=== PATIENT | female | born 1995 | race Caucasian/White ===

== ENCOUNTER 2016-09-27 13:31 | Emergency (ER) | payer OTHER ==
[~2016-09-27] VITALS: Ht 162.6 cm; Wt 83.1 kg
--- NOTE | 2016-09-27 13:57 | NUR ---
pt on control polo
[2016-09-27] MEDS ORDERED: PROMETHAZINE 25 MG/ML (PHENERGAN) 1 ML VIAL IM ONE (14:10)
[2016-09-27] MEDS ORDERED: HYDROmorphone 2 MG/ML (DILAUDID) 1 ML SYRINGE IM ONE (14:10)
--- NOTE | 2016-09-27 14:21 | NUR ---
pt has her head under a pillow, refuses to lay on back or allow for a complete assessment
[2016-09-27 15:54] VITALS: BP 118/58
== END 2016-09-27 15:40 | disposition home or self-care (01) ==
LOC: EDUNIT# 13:31 → EDBD 13:32 → ED 13:32
DX: G43.409 Hemiplegic migraine, not intractable, without status migrainosus (principal)
CPT/HCPCS: 70450; 96372; 99283; J1170; J2550

== ENCOUNTER → 2016-09-27 | Outpatient (CLI) | payer OTHER ==
[2016-09-27 13:31] VITALS: BP 122/78
== END ==
LOC: EDBD → MHUC 13:15
PROVIDERS: ATTEND Physician Assistant
DX: R51 Headache (principal); R20.0 Anesthesia of skin

== ENCOUNTER 2016-12-14 20:55 | Emergency (ER) | payer OTHER ==
[~2016-12-14] VITALS: Ht 162.6 cm; Wt 88.6 kg
[~2016-12-14 20:55] MED LIST: AC325T PO; ACET325T38 PO; BUPR150T6 PO; DOCO200C4 PO; DOXY100T41 PO; HYDR-3702 PO; IBP200T PO; IBP800T PO; METR500T17 PO; ONDA4TAB8 PO; OXYC1TAB87 PO; PNV#1COM6 PO; SUMA100T3 PO
--- OUTSIDE RECORDS SUMMARY | 2016-12-14 21:01 | XMS REPORT | Continuity of Care Document ---
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 Hospital Discharge Instructions No hospital discharge instructions. Plan of Care No plan of care. Functional Status No functional status results. Allergies, Adverse Reactions, Alerts Allergen Type Severity Reaction Status Last Updated No Known Drug Allergies Active 04/09/13 Immunizations No immunization records. Vital Signs Acute Vital Signs Vital Response Date/Time Temperature (Fahrenheit) 97.9 Pulse 83 bpm Respirations 20 Height 5 ft 4 in Weight 169 lb Body Mass Index 29.0 kg/m^2 Results Test Source Date Result Interp. Ref. Range Comments Anion Gap December 08, 2013 10:55am 9.0 MEQ/L N 3-15 Collected by nurse? N BUN/Creatinine Ratio December 08, 2013 10:55am 18 N 10-20 Collected by nurse ? N Basophils # (Auto) December 08, 2013 10:55am 0.0 10^3uL Collected by nurse? N Basophils (%) (Auto) December 08, 2013 10:55am 0 % N 0-2 Collected by nurse ? N Blood Urea Nitrogen December 08, 2013 10:55am 14 MG/DL N 7-18 Collected by nurse? N C-Reactive Protein December 08, 2013 10:55am < 0.50 MG/DL 0.0-0.9 Collected by nurse? N Calcium Level December 08, 2013 10:55am 9.6 MG/DL N 8.8-10.8 Collected by nurse? N Carbon Dioxide Level December 08, 2013 10:55am 30 MMOL/L H 22-29 Collected by nurse? N Chloride Level December 08, 2013 10:55am 104 mmol/L N 98-108 Collected by nurse? N Creatinine December 08, 2013 10:55am 0.80 mg/dL N 0.6-1.2 Collected by nurse ? N Eosinophils # (Auto) December 08, 2013 10:55am 0.1 10^3uL Collected by nurse? N Eosinophils (%) (Auto) December 08, 2013 10:55am 2 % N 0-4 Collected by nurse? N Erythrocyte Sedimentation Rate December 08, 2013 10:55am 10 mm/hr N 0-18 Collected by nurse? N Estimat Glomerular Filtration Rate December 08, 2013 10:55am 111.8 Collected by nurse? N Estimated GFR (Non- December 08, 2013 10:55am 92.4 Collected by nurse? N Membranes Rupture (PAMG-1) December 23, 2014 5:28am Negative Negative Collected by nurse? YHas specimen been collected/obtained? Y Glucose Level December 08, 2013 10:55am 94 mg/dL N 70-110 Collected by nurse ? N Hematocrit December 08, 2013 10:55am 39.50 % N 35.00-45.00 Collected by nurse? N Hemoglobin December 08, 2013 10:55am 13.9 g/dL N 12.0-15.5 Collected by nurse? N Lymphocytes # (Auto) December 08, 2013 10:55am 2.3 X10^3 Collected by nurse? N Lymphocytes (%) (Auto) December 08, 2013 10:55am 34 % N 20-46 Collected by nurse? N Mean Corpuscular Hemoglobin December 08, 2013 10:55am 29.8 PG N 26.0-34.0 Collected by nurse? N Mean Corpuscular Hemoglobin Concent December 08, 2013 10:55am 35.2 g/dL N 31.0-37.0 Collected by nurse? N Mean Corpuscular Volume December 08, 2013 10:55am 85 FL N 80-100 Collected by nurse? N Mean Platelet Volume December 08, 2013 10:55am 10.2 FL H 6.0-9.5 Collected by nurse? N Monocytes # (Auto) December 08, 2013 10:55am 0.6 X10^3 Collected by nurse? N Monocytes (%) (Auto) December 08, 2013 10:55am 9 % N 3-11 Collected by nurse ? N Monoscreen February 23, 2012 10:23am Negative Negative Neutrophils # (Auto) December 08, 2013 10:55am 3.7 X10^3 Collected by nurse? N Neutrophils (%) (Auto) December 08, 2013 10:55am 55 % N 51-67 Collected by nurse? N Platelet Count December 08, 2013 10:55am 275 10^3uL N 150-450 Collected by nurse? N Potassium Level December 08, 2013 10:55am 3.9 mmol/L N 3.5-5.1 Collected by nurse? N Red Blood Count December 08, 2013 10:55am 4.67 10^6uL N 4.00-5.00 Collected by nurse? N Red Cell Distribution Width December 08, 2013 10:55am 13.6 % N 11.8-15.6 Collected by nurse? N Sodium Level December 08, 2013 10:55am 140 MMOL/L N 135-150 Collected by nurse? N Thyroid Stimulating Hormone (TSH) December 08, 2013 10:55am 0.91 UIU/ML N 0.46-4.68 Collected by nurse? N Urine Bacteria December 23, 2014 7:14am Rare /HPF Collected by nurse? YHas specimen been collected/obtained? Y Urine Bilirubin December 23, 2014 7:14am Negative Negative Collected by nurse? YHas specimen been collected/obtained? Y Urine Blood September 03, 2013 3:05pm Negative Negative Collected by nurse? YHas specimen been collected/obtained? Y Urine Clarity December 23, 2014 7:14am Clear Collected by nurse? YHas specimen been collected/obtained? Y Urine Collection Type December 23, 2014 7:14am Random voided Collected by nurse? YHas specimen been collected/obtained? Y Urine Color December 23, 2014 7:14am Yellow Collected by nurse? YHas specimen been collected/obtained? Y Urine Glucose (UA) December 23, 2014 7:14am Negative Negative Collected by nurse? YHas specimen been collected/obtained? Y Urine Ketones December 23, 2014 7:14am Negative Negative Collected by nurse? YHas specimen been collected/obtained? Y Urine Leukocyte Esterase December 23, 2014 7:14am Trace H Negative Collected by nurse? YHas specimen been collected/obtained? Y Urine Mucus December 23, 2014 7:14am Rare Collected by nurse? YHas specimen been collected/obtained? Y Urine Nitrite December 23, 2014 7:14am Negative Negative Collected by nurse? YHas specimen been collected/obtained? Y Urine Protein December 23, 2014 7:14am Negative Negative Collected by nurse? YHas specimen been collected/obtained? Y Urine RBC December 23, 2014 7:14am 0-2 /HPF Collected by nurse? YHas specimen been collected/obtained? Y Urine RBC (Auto) December 23, 2014 7:14am Negative Negative Collected by nurse? YHas specimen been collected/obtained? Y Urine Specific [place] December 23, 2014 7:14am 1.015 1.005-1.030 Collected by nurse? YHas specimen been collected/obtained? Y Urine Squamous Epithelial Cells December 23, 2014 7:14am 2-5 /LPF Collected by nurse? YHas specimen been collected/obtained? Y Urine Urobilinogen December 23, 2014 7:14am 0.2 mg/dL 0.2-1.0 Collected by nurse? YHas specimen been collected/obtained? Y Urine WBC December 23, 2014 7:14am 2-5 /HPF Collected by nurse? YHas specimen been collected/obtained? Y Urine pH December 23, 2014 7:14am 7.5 5.0 - 8.0 Collected by nurse? YHas specimen been collected/obtained? Y Volume Urine Centrifuged December 23, 2014 7:14am 12 ml Collected by nurse? YHas specimen been collected/obtained? Y White Blood Count December 08, 2013 10:55am 6.81 10^3uL N 4.0-11.0 Collected by nurse? N GC Culture Vaginal November 06, 2014 9:00pm Urine Culture Urine-Clean Catch September 03, 2013 3:05pm Procedures No known history of procedures. Encounters Encounter Location Date/Time Departed Clinic 12/23/14 5:10am
--- OUTSIDE RECORDS SUMMARY | 2016-12-14 21:02 | XMS REPORT | Continuity of Care Document ---
Author Author [facility] Organization [facility] Address Unknown Phone Unavailable Care Team Providers Care Cath Lab Technologist Name Role Phone ERIC SHAW MD PCP [phone] Insurance Providers Payer Name Policy Number Subscriber Name Relationship [facility] [employer] [id number] Sepideh Garcia 17 Self / Same As [...] YHas specimen been collected/obtained? Y Urine Specific [place] December 23, 2014 7:14am 1.015 1.005-1.030 Collected [...] procedures. Encounters Encounter Location Date/Time Departed Clinic [facility] 12/23/14 5:10am
[2016-12-14] MEDS ORDERED: LIDOCAINE/EPINEPHRINE 2% 1:100,000 (XYLOCAINE) 30 ML VIAL INJ ONE (21:20)
[2016-12-14] MEDS ORDERED: BACITRACIN OINTMENT 0.9 GM PACKET TOP ONE (21:20)
[2016-12-14] MEDS ORDERED: AMOXICILLIN/CLAVULANATE 875MG-125MG (AUGMENTIN) TABLET PO ONE (21:20)
[2016-12-14] MEDS ORDERED: AMOX1TAB12 PO (22:21)
[2016-12-14] MEDS ORDERED: ED- HYDROcodone/ACETAMINOPHEN 5MG/325MG (NORCO) 6 TABLETS/BTL PO ONE (22:25)
[2016-12-14 22:54] VITALS: BP 108/64
--- NOTE | 2016-12-15 07:22 | Diagnostic Imaging Report ---
EXAM: HAND, RIGHT, 2 VIEWS. INDICATION: Dog bite. COMPARISON: None. FINDINGS: No fracture or malalignment. No radiopaque foreign bodies. Gas within the soft tissues between the first and second metacarpals. IMPRESSION: No acute osseous findings. No radiopaque foreign bodies. Dictated by: Dictated on workstation # [id number]
== END 2016-12-14 22:25 | disposition home or self-care (01) ==
LOC: ED 20:57
DX: S61.451A Open bite of right hand, initial encounter (principal); S61.551A Open bite of right wrist, initial encounter; W54.0XXA Bitten by dog, initial encounter; Y93.89 Activity, other specified
CPT/HCPCS: 12002; 73120; 99283